=== PATIENT | male | born 1950 | race Hispanic/Latino ===

== ENCOUNTER → 2021-01-07 | Outpatient (CLI) | payer MEDICARE | END | disposition home or self-care (01) | LOC: OIH 13:29 | PROVIDERS: ATTEND Internal Medicine | DX: M19.042 Primary osteoarthritis, left hand (principal); M19.041 Primary osteoarthritis, right hand; M24.842 Other specific joint derangements of left hand, not elsewhere classified; M24.841 Other specific joint derangements of right hand, not elsewhere classified ==